=== PATIENT | female | born 1985 | race Caucasian/White ===

== ENCOUNTER 2018-10-09 10:13 | Emergency (ER) | payer BC ==
[2018-10-09 11:08] VITALS: BP 147/74
--- NOTE | 2018-10-09 11:23 | UC ---
UC General HPI - HPI Summary HPI Summary: pt is c/o pain in her L shoulder x 1 month. states began after her flu shot and wonders if it is a bursitis from that. no hx of an injury. worst with raising the arm against resistance. no neck pain. self tx with an occasional motrin. - History of Current Complaint Chief Complaint: UCGeneralIllness Stated Complaint: LEFT ARM/SHOULDER PAIN S/P FLU SHOT 09/04/18 Time Seen by Provider: 10/09/18 11:11 Hx Obtained From: Patient Hx Last Menstrual Period: 09/24/18 Pain Intensity: 0 Associated Signs & Symptoms: Negative: Fever - Allergy/Home Medications Allergies/Adverse Reactions: Allergies Allergy/AdvReac Type Severity Reaction Status Date / Time No Known Allergies Allergy Verified 10/09/18 11:08 Home Medications: Home Medications Ethinyl Estradiol/Drospirenone [Loryna] 1 tab PO DAILY 10/09/18 [History Confirmed 10/09/18] Multivitamin [Multivitamins] 1 cap PO DAILY 10/09/18 [History Confirmed 10/09/18 ] PMH/Surg Hx/FS Hx/Imm Hx Previously Healthy: Yes - Surgical History Surgical History: None - Social History Occupation: Employed Full-time Lives: With Family Alcohol Use: Weekly Substance Use Type: None Smoking Status (MU): Never Smoked Tobacco Review of Systems All Other Systems Reviewed And Are Negative: Yes Constitutional: Positive: Negative Skin: Positive: Negative Eyes: Positive: Negative ENT: Positive: Negative Respiratory: Positive: Negative Cardiovascular: Positive: Negative Gastrointestinal: Positive: Negative Genitourinary: Positive: Negative Motor: Positive: Negative Neurovascular: Positive: Negative Musculoskeletal: Positive: Negative Neurological: Positive: Negative Psychological: Positive: Negative Is Patient Immunocompromised?: No Physical Exam Triage Information Reviewed: Yes Appearance: Well-Appearing Vital Signs: Initial Vital Signs Temp 98.6 F 10/09/18 11:03 Pulse 94 10/09/18 11:03 Resp 18 10/09/18 11:03 BP 147/74 10/09/18 11:03 Pulse Ox 98 10/09/18 11:03 Vital Signs Reviewed: Yes Eyes: Positive: Conjunctiva Clear ENT: Positive: Normal ENT inspection Neck: Positive: Supple, Nontender, No Lymphadenopathy Respiratory: Positive: Lungs clear, Normal breath sounds Cardiovascular: Positive: RRR, No Murmur Abdomen Description: Positive: Nontender, No Organomegaly, Soft Bowel Sounds: Positive: Present Musculoskeletal: Positive: Other: - arms bare for exam. LUE no gross deformity, swelling or discoloration. mildly tender posterior shoulder. passive rom intact with no pain. pt c/o pain with active rom. negative drop arm and anterior stress. rest of LUE unremarkable with full s/v/m function. Neurological: Positive: Alert Psychological: Positive: Age Appropriate Behavior Skin Exam: Normal Skin: Negative: Rashes Course/Dx - Course Course Of Treatment: no concern for infection or fx. will tx nsaid and refer to orthpedics. - Differential Dx - Multi-Symptom Provider Diagnoses: acute L shoulder pain Discharge - Sign-Out/Discharge Documenting (check all that apply): Patient Departure All imaging exams completed and their final reports reviewed: No Studies - Discharge Plan Condition: Stable Disposition: HOME Prescriptions: Naproxen [Naprosyn 500 mg tab] 500 mg PO BID 5 Days #10 tablet Patient Education Materials: Shoulder Pain (ED) Referrals: Madhu Hsu MD [Medical Doctor] - As Soon As Possible - Billing Disposition and Condition Condition: STABLE Disposition: Home
== END 2018-10-09 11:53 | disposition home or self-care (01) ==
LOC: MERGE 10:13 → UCCORT 10:13
DX: M25.512 Pain in left shoulder (principal)
CPT/HCPCS: 99201; G0463

== ENCOUNTER 2019-09-26 07:53 | Emergency (ER) | payer BC ==
[2019-09-26 08:04] VITALS: BP 121/76
[2019-09-26] MEDS ORDERED: Ondansetron ODT TAB* 4 MG PO ONE (08:33)
[2019-09-26] MEDS ORDERED: NS 0.9% 1000 ML** 1,000 ML IV ONE (08:33)
--- NOTE | 2019-09-26 08:35 | UC ---
Nausea/Vomiting/Diarrhea HPI - HPI Summary HPI Summary: 34 year old female comes in with a chief complaint of nausea and diarrhea intermittent cramping abdominal pain for 3 days. 4 days ago patient ate a lot of different foods in [facility] and she believes it was something that she ate is causing the problem. The abdominal pain is cramping intermittent diffuse. The diarrhea is watery. Patient's been nauseous he has not vomited. Has not seen any blood in the stool. Patient has had chills she has not measured any fevers. Every time she drinks liquids she has diarrhea. She has felt lightheaded and she stands up. Has only eaten a small amount of solid food. - History of Current Complaint Chief Complaint: UCAbdominalPain Stated Complaint: STOMACH ACHE/CHILLS Time Seen by Provider: 09/26/19 08:14 Hx Last Menstrual Period: 09/15/19 Pain Intensity: 0 - Allergies/Home Medications Allergies/Adverse Reactions: Allergies Allergy/AdvReac Type Severity Reaction Status Date / Time dark hair dye Allergy Hives Uncoded 09/26/19 08:04 Home Medications: Home Medications Amphetamine/Dextroamph ER(NF) [Adderal XR (NF)] 20 mg PO DAILY 09/26/19 [ History Confirmed 09/26/19] Escitalopram * [Lexapro 10 mg (NF)] 15 mg PO DAILY 09/26/19 [History Confirmed 09/26/19] PMH/Surg Hx/FS Hx/Imm Hx Previously Healthy: Yes Other Psychological History: adhd - Surgical History Surgical History: None Surgery Procedure, Year, and Place: DENIES - Family History Known Family History: Positive: None - Social History Alcohol Use: Weekly Alcohol Amount: 2-3 drinks a week Substance Use Type: None Smoking Status (MU): Never Smoked Tobacco - Immunization History Most Recent Influenza Vaccination: none Review of Systems All Other Systems Reviewed And Are Negative: Yes Constitutional: Positive: Chills, Other - see hpi Skin: Positive: Negative Eyes: Positive: Negative ENT: Positive: Negative Respiratory: Positive: Negative Cardiovascular: Positive: Negative Gastrointestinal: Positive: Abdominal Pain, Diarrhea, Nausea Genitourinary: Positive: Negative Motor: Positive: Negative Neurovascular: Positive: Negative Musculoskeletal: Positive: Negative Neurological: Positive: Negative Psychological: Positive: Negative Is Patient Immunocompromised?: No Physical Exam Triage Information Reviewed: Yes Appearance: No Pain Distress, Well-Nourished, Ill-Appearing - mild Vital Signs: Initial Vital Signs Temp 97.7 F 09/26/19 08:00 Pulse 103 09/26/19 08:00 Resp 18 09/26/19 08:00 BP 121/76 09/26/19 08:00 Pulse Ox 99 09/26/19 08:00 Vital Signs Reviewed: Yes Eye Exam: Normal Eyes: Positive: Conjunctiva Clear ENT: Positive: Other - Oral mucosa is slightly dry Neck: Positive: Supple Respiratory: Positive: Lungs clear, Normal breath sounds, No respiratory distress Cardiovascular: Positive: RRR Abdomen Description: Positive: Other: - Mild diffuse lower abdominal tenderness to palpation. Bowel Sounds: Positive: Hypoactive Musculoskeletal: Positive: Strength Intact, ROM Intact Neurological: Positive: Alert Psychological: Positive: Age Appropriate Behavior Skin Exam: Normal Naus/Vom/Diarrhea Course/Dx - Course Course Of Treatment: In clinic patient was given Zofran 4 mg ODT and 1 L of normal saline. She was able to share some stool with us that's been sent to the lab. She was able to tolerate some crackers after taking the Zofran. She was also able to drink a bottle of water. Plan is to continue to advance the diet as tolerated use Zofran as needed if helpful. At this time the patient does not have a fever there is no focal area of pain and she is tolerating by mouth fluids. Discussed that if things got worse with fevers focal abdominal pain dehydration blood in the stool or any other concerns she needed further evaluation and care in the emergency department. - Differential Dx/Diagnosis Provider Diagnosis: Diarrhea, Abdominal pain, Dehydration Condition At Discharge: Stable Discharge ED - Sign-Out/Discharge Documenting (check all that apply): Patient Departure All imaging exams completed and their final reports reviewed: No Studies - Discharge Plan Condition: Stable Disposition: HOME Prescriptions: Ondansetron ODT TAB* [Zofran 4 MG Odt TAB*] 4 mg PO Q6H PRN #10 tab.odt PRN Reason: Nausea Patient Education Materials: Dehydration (ED), Acute Nausea and Vomiting (ED), Acute Diarrhea (ED), Acute Abdominal Pain (ED) Referrals: Kassandra Mcclain [Primary Care Provider] - Additional Instructions: FOLLOW UP WITH YOUR DOCTOR. GO TO THE EMERGENCY DEPARTMENT IF NOT IMPROVING OR YOUR CONDITION WORSENS; PAIN , FEVER, DEHYDRATION, BLOOD IN YOUR STOOL OR ANY QUESTIONS OR CONCERNS. - Billing Disposition and Condition Condition: STABLE Disposition: Home
--- NOTE | 2019-09-27 07:34 | UC ---
- Progress Note Progress Note: Stool sample results come back positive for stool occult blood. The stool color was clear and colorless nondeformed and mucoid. Negative for C. difficile. O&P stool culture and fecal lactoferrin are all pending. Due to the low volume of stool sample Shiga toxin testing was unable to be performed. Shiga toxin can be found with people with bloody diarrhea. Nursing to call patient inquired how she is doing. Asymptomatic Shigella does not need to be treated however, symptomatic Shigella does get treated with oral antibiotics therefore if the patient continues to be symptomatic we need to get another stool sample. If the patient is still symptomatic and having diarrhea we should obtain another stool sample for should get testing. If the patient is worse with pain and fever dehydration she should get further evaluation emergency department. Course/Dx - Diagnoses Provider Diagnoses: Diarrhea, Abdominal pain, Dehydration Discharge ED - Sign-Out/Discharge Documenting (check all that apply): Patient Departure All imaging exams completed and their final reports reviewed: No Studies - Discharge Plan Condition: Stable Disposition: HOME Prescriptions: Ondansetron ODT TAB* [Zofran 4 MG Odt TAB*] 4 mg PO Q6H PRN #10 tab.odt PRN Reason: Nausea Patient Education Materials: Dehydration (ED), Acute Nausea and Vomiting (ED), Acute Diarrhea (ED), Acute Abdominal Pain (ED) Referrals: Kassandra Mcclain [Primary Care Provider] - Additional Instructions: FOLLOW UP WITH YOUR DOCTOR. GO TO THE EMERGENCY DEPARTMENT IF NOT IMPROVING OR YOUR CONDITION WORSENS; PAIN , FEVER, DEHYDRATION, BLOOD IN YOUR STOOL OR ANY QUESTIONS OR CONCERNS. - Billing Disposition and Condition Condition: STABLE Disposition: Home
== END 2019-09-26 09:57 | disposition home or self-care (01) ==
LOC: UCCORT 07:53
DX: R19.7 Diarrhea, unspecified (principal); E86.0 Dehydration; R10.9 Unspecified abdominal pain; Z79.899 Other long term (current) drug therapy; F90.9 Attention-deficit hyperactivity disorder, unspecified type
CPT/HCPCS: 82270; 83630; 87045; 87046; 87328; 87329; 87493; 87899; 96360; 99212; A9270-GY; G0463